=== PATIENT | male | born 1980 | race Caucasian/White ===

== ENCOUNTER → 2017-05-24 | Outpatient (CLI) | payer OTHER ==
--- NOTE | 2017-05-24 14:22 | CT ---
HISTORY: Left upper quadrant pain. Study: CT abdomen and pelvis with contrast Comparison: None. Technique: Multiple axial images of the abdomen and pelvis were obtained from the lung bases to the pubic symphy sis after the administration of IV contrast. Dose reduction techniques including Automated Exposure Control (AEC) and adjustment of mA and kV were utilized. Findings: Bibasilar scarring versus atelectasis. Otherwise, the visualized portions of the lung bases are unrem arkable. Nonspecific soft tissue stranding is seen adjacent to the tail of the pancreas/inferior port ion of the spleen. The liver, spleen, pancreas, kidneys, and adrenal glands are otherwise unremarkabl e in their CT appearance. The gallbladder is unremarkable in its CT appearance. No significant mesen teric lymphadenopathy or stranding can be observed. No free fluid or free air is seen within the abd omen. Scattered colonic diverticulum without evidence of diverticulitis. The visualized large and sm all bowel are otherwise unremarkable. The appendix appears normal. The urinary bladder is grossly unr emarkable. Degenerative changes of the spine. No aggressive osseous lesions. IMPRESSION: Nonspecific soft tissue stranding is seen adjacent to the tail of the pancreas/inferior portion of the spleen. No obvious pancreatic or splenic abnormalities. Recommend clinical/laboratory correlation. Reported By:
== END ==
LOC: RAD 13:06
PROVIDERS: ATTEND Internal Medicine
DX: R10.32 Left lower quadrant pain (principal); R10.12 Left upper quadrant pain
CPT/HCPCS: 74177; A4222